=== PATIENT | female | born 1960 | race Caucasian/White ===

== ENCOUNTER 2024-04-09 12:25 | Emergency (ER) | payer OTHER ==
[~2024-04-09] VITALS: Ht 160 cm; Wt 64.9 kg
[~2024-04-09 12:25] MED LIST: AVELOX400 MG PO; DAYPRO600 M1 PO; ROBAXIN750 MG PO
[2024-04-09] MEDS ORDERED: Synthroid,Levo25 MCG PO (12:59)
[2024-04-09] MEDS ORDERED: MIRTAZAPINE45 MG PO (12:59)
[2024-04-09] MEDS ORDERED: ANASTROZOLE1 M1 PO (13:00)
[2024-04-09] MEDS ORDERED: ATORVASTATIN CA10 M1 PO (13:00)
[2024-04-09] MEDS ORDERED: LORAZEPAM0.5 M1 PO (13:00)
[2024-04-09] MEDS ORDERED: Acetaminophen/Hydrocodone 5 MG/325 MG TABLET PO ONE (13:30)
[2024-04-09] MEDS ORDERED: NAPROSYN500 MG PO (14:05)
== END 2024-04-09 14:10 | disposition home or self-care (01) ==
LOC: ED 12:25
DX: M25.562 Pain in left knee (principal); R60.0 Localized edema; F41.9 Anxiety disorder, unspecified; M19.90 Unspecified osteoarthritis, unspecified site; E78.5 Hyperlipidemia, unspecified

== ENCOUNTER 2024-12-15 14:32 | Emergency (ER) | payer OTHER ==
[~2024-12-15] VITALS: Wt 62.6 kg
[~2024-12-15 14:32] MED LIST changes: +ANASTROZOLE1 M1 PO; +ATORVASTATIN CA10 M1 PO; +LORAZEPAM0.5 M1 PO; +MIRTAZAPINE45 MG PO; +NAPROSYN500 MG PO; +Synthroid,Levo25 MCG PO
[2024-12-15 15:07] LABS: BASO % 0.5 % (0.0-1.0); EOS % 0.4 % (1.0-4.0); HEMATOCRIT 37.6 % (37.0-47.0); MEAN CELL VOLUME 99.5 fl (81.0-99.0); MEAN CORPUSCULAR HGB 31.5 pg (27.0-31.0); MEAN CORPUSCULAR HGB CONC 31.6 g/dl (33.0-37.0); MEAN PLATELET VOLUME 9.9 fl (9.6-12.3); MONO # 0.6 10*3/uL (0.1-1.0); MONO % 7.4 % (3.0-9.0); NEUT # 5.4 10*3/uL (2.3-7.9); NEUT % 69.2 % (47.0-73.0); PLATELET COUNT AUTOMATED 225 10*3/uL (130-400); RED BLOOD COUNT 3.78 10*6/uL (4.10-5.10); RED CELL DISTRI WIDTH 12.5 % (0-14.5); WHITE BLOOD COUNT 7.8 10*3/uL (4.8-10.8)
[2024-12-15 15:28] LABS: BUN 12 mg/dl (9-23); CHLORIDE 106 mmol/L (98-107); POTASSIUM 3.8 mmol/L (3.4-5.1)
[2024-12-15] MEDS ORDERED: HYDROXYZINE HCL25 MG PO (15:42)
[2024-12-15] MEDS ORDERED: SEPTDS PO (15:42)
[2024-12-15] MEDS ORDERED: Sulfamethoxazole/Trimethopri 1 TAB TAB PO ONE (15:45)
[2024-12-15] MEDS ORDERED: hydrOXYzine pamoate 25 MG CAP PO ONE (15:45)
== END 2024-12-15 15:55 | disposition home or self-care (01) ==
LOC: ED 14:32
PROVIDERS: Nurse Practitioner Family
DX: L03.115 Cellulitis of right lower limb (principal); E03.9 Hypothyroidism, unspecified; E78.5 Hyperlipidemia, unspecified; M19.90 Unspecified osteoarthritis, unspecified site; Z79.899 Other long term (current) drug therapy; W57.XXXA Bitten or stung by nonvenomous insect and other nonvenomous arthropods, initial encounter; Y93.89 Activity, other specified; Y92.89 Other specified places as the place of occurrence of the external cause; Y99.8 Other external cause status